=== PATIENT | male | born 1965 | race Two or more races ===

== ENCOUNTER 2022-06-01 00:55 | Emergency (ER) | payer OTHER ==
[~2022-06-01] VITALS: Ht 180.3 cm; Wt 68.2 kg
[2022-06-01 04:56] VITALS: BP 113/67
[2022-06-01] MEDS ORDERED: methylPREDNISolone SOD SUCC 125 MG/2 ML VL IM ONE (05:30)
[2022-06-01] MEDS ORDERED: diphenhdrAMINE HCL 50 MG/1 ML VL IM ONE (05:30)
[2022-06-01] MEDS ORDERED: PRED20TA2 PO (06:31)
[2022-06-01] MEDS ORDERED: DIPH25CA66 PO (06:31)
== END 2022-06-01 06:34 | disposition home or self-care (01) ==
LOC: ER 00:55
DX: R22.0 Localized swelling, mass and lump, head (principal); T78.3XXA Angioneurotic edema, initial encounter; F17.210 Nicotine dependence, cigarettes, uncomplicated
CPT/HCPCS: 96372; 99284; J1200; J2930